=== PATIENT | male | born 1985 | race Caucasian/White ===

== ENCOUNTER 2018-03-28 15:42 | Emergency (ER) | payer BC ==
--- NOTE | 2018-03-28 16:18 | ERPHSYRPT ---
- History of Present Illness Time Seen by Provider: 03/28/18 16:08 Historian: patient Exam Limitations: no limitations Patient Subjective Stated Complaint: Patient stated he started not feeling well around 1100 and he ate lunch then afterwards pain started in RUQ at 10/10. Patient states pain has subsided now. Triage Nursing Assessment: Patient presented in ER ambulating and transferred self into bed. Patient had been at [facility] for RUQ pain and was told to come to ER. Patient stated he started not feeling well around 1100 and he ate lunch then afterwards pain started in RUQ at 10/10. Patient states pain has subsided now. Patient BS present X 4. Last BM 03/28/18. Patient has rebound tenderness to RUQ. Physician History: The patient is a 32-year-old male with his complaining of a sudden onset of right upper quadrant pain about a half an hour after eating a fatty meal at 1 :00 this afternoon. Earlier in the day he was feeling kind of weak and disoriented but that has gone away now. He went to [facility] that was told to come here for possible gallbladder issues. The pain at its most intense is a 10 out of 10 but sometimes it will ease up somewhat. He has some nausea but has not vomited. He denies fever or chills. He's had a negative past medical history. He's had no surgeries. Timing/Duration: today, hour(s) (3), sudden, worse Quality: sharpness Abdominal Pain Onset Location: RUQ Pain Radiation: no radiation Severity of Pain-Max: severe Severity of Pain-Current: severe Modifying Factors: Improves With: eating (worse) Associated Symptoms: nausea Previous symptoms: no prior history Allergies/Adverse Reactions: No Known Drug Allergies Allergy (Verified 03/28/18 16:03) Home Medications: No Reportable Medications [No Reported Medications] 03/28/18 [History] Hx Tetanus, Diphtheria Vaccination/Date Given: Yes Hx Influenza Vaccination/Date Given: No Hx Pneumococcal Vaccination/Date Given: No Immunizations Up to Date: Yes - Review of Systems Constitutional: No Fever, No Chills Eyes: No Symptoms Ears, Nose, & Throat: No Symptoms Respiratory: No Cough, No Dyspnea Cardiac: No Chest Pain, No Edema, No Syncope Abdominal/Gastrointestinal: Abdominal Pain, Nausea, No Vomiting, No Diarrhea Genitourinary Symptoms: No Dysuria Musculoskeletal: No Back Pain, No Neck Pain Skin: No Rash Neurological: No Dizziness, No Focal Weakness, No Sensory Changes Psychological: No Symptoms Endocrine: No Symptoms Hematologic/Lymphatic: No Symptoms Immunological/Allergic: No Symptoms All Other Systems: Reviewed and Negative - Past Medical History Pertinent Past Medical History: No Neurological History: Migraines ENT History: No Pertinent History Cardiac History: No Pertinent History Respiratory History: Bronchitis Endocrine Medical History: No Pertinent History Musculoskeletal History: Fractures GI Medical History: No Pertinent History History: No Pertinent History Psycho-Social History: No Pertinent History Male Reproductive Disorders: No Pertinent History Other Medical History: Skull fx in 2000. Jaw fx in 2000 - Past Surgical History Past Surgical History: No Neuro Surgical History: No Pertinent History Cardiac: No Pertinent History Respiratory: No Pertinent History Gastrointestinal: No Pertinent History Genitourinary: No Pertinent History Musculoskeletal: No Pertinent History Male Surgical History: No Pertinent History - Social History Smoking Status: Never smoker Exposure to second hand smoke: Yes Drug Use: none Patient Lives Alone: No - Nursing Vital Signs Nursing Vital Signs: Initial Vital Signs Temperature 98.9 F 03/28/18 15:43 Pulse Rate 83 03/28/18 15:43 Respiratory Rate 22 03/28/18 15:43 Blood Pressure 104/58 03/28/18 15:43 O2 Sat by Pulse Oximetry 98 03/28/18 15:43 Pain Scale Pain Intensity 5 - Physical Exam General Appearance: mild distress Eye Exam: PERRL/EOMI, eyes nml inspection Ears, Nose, Throat Exam: normal ENT inspection, pharynx normal, moist mucous membranes Neck Exam: normal inspection, non-tender, supple, full range of motion Respiratory Exam: normal breath sounds, lungs clear, No respiratory distress Cardiovascular Exam: regular rate/rhythm, normal heart sounds Gastrointestinal/Abdomen Exam: tenderness (RUQ) Rectal Exam: not done Back Exam: normal inspection, normal range of motion, No CVA tenderness, No vertebral tenderness Extremity Exam: normal inspection, normal range of motion, pelvis stable Neurologic Exam: alert, oriented x 3, cooperative, normal mood/affect, nml cerebellar function, sensation nml, No motor deficits Skin Exam: normal color, warm, dry SpO2 Interpretation: normal SpO2: 98 Oxygen Delivery: Room Air - CT Exams Abdomen/Pelvis CT Interpretation: Tele-radiologist Report (per Dr Johnson), No appendicitis, Other (no renal stone; small HH; mild sigmoid diverticulosis; tiny pelvic free fluid. remaining abd negative) - Radiology Ultrasound Exam Gallbladder Ultrasound: negative (per U/S tech) Ordered Tests: Active Orders 24 hr Category Date Time Status IV Insertion STAT Care 03/28/18 16:22 Active ABDOMEN AND PELVIS W/0 CONTRAS [CT] Stat Exams 03/28/18 18:27 Taken GALLBLADDER [US] Stat Exams 03/28/18 16:50 Taken AMYLASE Stat Lab 03/28/18 16:30 Completed CBC W DIFF Stat Lab 03/28/18 16:22 Completed CMP Stat Lab 03/28/18 16:30 Completed LIPASE Stat Lab 03/28/18 16:30 Completed Lactic Acid Stat Lab 03/28/18 16:35 Completed UA W/RFX UR CULTURE Stat Lab 03/28/18 16:30 Completed Medication Summary Discontinued Medications Generic Name Dose Route Start Last Admin Trade Name Freq PRN Reason Stop Dose Admin Sodium Chloride 1,000 mls @ 999 mls/hr 03/28/18 16:22 03/28/18 16:32 Sodium Chloride 0.9% 1000 Ml IV 03/28/18 17:22 999 mls/hr .Q1H1M STA Administration Sodium Chloride Confirm 03/28/18 16:28 Sodium Chloride 0.9% 1000 Ml Administered 03/28/18 16:29 Dose 1,000 mls @ ud .ROUTE .STK-MED ONE Morphine Sulfate 4 mg 03/28/18 16:22 03/28/18 16:31 Morphine Sulfate 4 Mg Inj IV 03/28/18 16:23 4 mg STAT ONE Administration Morphine Sulfate Confirm 03/28/18 16:28 Morphine Sulfate 4 Mg Inj Administered 03/28/18 16:29 Dose 4 mg .ROUTE .STK-MED ONE Ondansetron HCl 4 mg 03/28/18 16:22 03/28/18 16:30 Zofran 4 Mg/2 Ml Vial IV 03/28/18 16:23 4 mg STAT ONE Administration Ondansetron HCl Confirm 03/28/18 16:28 Zofran 4 Mg/2 Ml Vial Administered 03/28/18 16:29 Dose 4 mg .ROUTE .STK-MED ONE Lab/Rad Data: Laboratory Result Diagrams 03/28/18 16:22 03/28/18 16:30 Laboratory Results 0803/28/18 03/28/18 Range/Units 16:35 16:30 16:30 WBC (4.0-10.5) K/mm3 RBC (4.1-5.6) M/mm3 Hgb (12.5-18.0) gm/dl Hct (42-50) % MCV (78-100) fl MCH (26-32) pg MCHC (32-36) g/dl RDW (11.5-14.0) % Plt Count (150-450) K/mm3 MPV (6-9.5) fl Gran % (36.0-66.0) % Eos # (Auto) (0-0.5) Absolute Lymphs (auto) (1.0-4.6) Absolute Monos (auto) (0.0-1.3) Lymphocytes % (24.0-44.0) % Monocytes % (0.0-12.0) % Eosinophils % (0.00-5.0) % Basophils % (0.0-0.4) % Absolute Granulocytes (1.4-6.9) Basophils # (0-0.4) Sodium 141 (137-145) mmol/L Potassium 4.1 (3.5-5.1) mmol/L Chloride 100 (98-107) mmol/L Carbon Dioxide 30 (22-30) mmol/L Anion Gap 16.1 H (5-15) MEQ/L BUN 12 (9-20) mg/dL Creatinine 0.82 (0.66-1.25) mg/dL Estimated GFR > 60.0 ML/MIN Glucose 94 (74-106) mg/dL Lactic Acid 1.1 (0.4-2.0) Calcium 9.9 (8.4-10.2) mg/dL Total Bilirubin 0.40 (0.2-1.3) mg/dL AST 23 (17-59) U/L ALT 32 (0-50) U/L Alkaline Phosphatase 58 (38-126) U/L Serum Total Protein 7.8 (6.3-8.2) g/dL Albumin 5.0 (3.5-5.0) g/dL Amylase 51 (30-110) U/L Lipase 47 (23-300) U/L Ur Collection Type CCMS Urine Color YELLOW (YELLOW) Urine Appearance CLEAR (CLEAR) Urine pH 7.0 (5-6) Ur Specific [place] 1.010 (1.005-1.025) Urine Protein NEGATIVE (Negative) Urine Ketones NEGATIVE (NEGATIVE) Urine Blood NEGATIVE (0-5) Phil/ul Urine Nitrite NEGATIVE (NEGATIVE) Urine Bilirubin NEGATIVE (NEGATIVE) Urine Urobilinogen NORMAL (0-1) mg/dL Ur Leukocyte Esterase NEGATIVE (NEGATIVE) Urine Culture Reflexed NO (NO) Urine Glucose NEGATIVE (NEGATIVE) mg/dL Specimen Received 03-28-18 1645 03/28/18 Range/Units 16:22 WBC 8.4 (4.0-10.5) K/mm3 RBC 5.36 (4.1-5.6) M/mm3 Hgb 16.7 (12.5-18.0) gm/dl Hct 48.1 (42-50) % MCV 89.7 (78-100) fl MCH 31.2 (26-32) pg MCHC 34.7 (32-36) g/dl RDW 12.4 (11.5-14.0) % Plt Count 224 (150-450) K/mm3 MPV 11.1 H (6-9.5) fl Gran % 65.7 (36.0-66.0) % Eos # (Auto) 0.08 (0-0.5) Absolute Lymphs (auto) 2.08 (1.0-4.6) Absolute Monos (auto) 0.72 (0.0-1.3) Lymphocytes % 24.7 (24.0-44.0) % Monocytes % 8.5 (0.0-12.0) % Eosinophils % 0.9 (0.00-5.0) % Basophils % 0.2 (0.0-0.4) % Absolute Granulocytes 5.53 (1.4-6.9) Basophils # 0.02 (0-0.4) Sodium (137-145) mmol/L Potassium (3.5-5.1) mmol/L Chloride (98-107) mmol/L Carbon Dioxide (22-30) mmol/L Anion Gap (5-15) MEQ/L BUN (9-20) mg/dL Creatinine (0.66-1.25) mg/dL Estimated GFR ML/MIN Glucose (74-106) mg/dL Lactic Acid (0.4-2.0) Calcium (8.4-10.2) mg/dL Total Bilirubin (0.2-1.3) mg/dL AST (17-59) U/L ALT (0-50) U/L Alkaline Phosphatase (38-126) U/L Serum Total Protein (6.3-8.2) g/dL Albumin (3.5-5.0) g/dL Amylase (30-110) U/L Lipase (23-300) U/L Ur Collection Type Urine Color (YELLOW) Urine Appearance (CLEAR) Urine pH (5-6) Ur Specific [place] (1.005-1.025) Urine Protein (Negative) Urine Ketones (NEGATIVE) Urine Blood (0-5) Phil/ul Urine Nitrite (NEGATIVE) Urine Bilirubin (NEGATIVE) Urine Urobilinogen (0-1) mg/dL Ur Leukocyte Esterase (NEGATIVE) Urine Culture Reflexed (NO) Urine Glucose (NEGATIVE) mg/dL Specimen Received - Progress Progress: improved Progress Note: 03/28/18 18:25 After MSO4 4 mg, zofran 4 mg, and fluids by IV, pt is still in pain. Abb/pelvis CT offered and pt agrees. Counseled pt/family regarding: lab results, diagnosis, need for follow-up, rad results - Departure Time of Disposition: 19:27 Departure Disposition: Home Clinical Impression: Abdominal pain Condition: Stable Critical Care Time: No Referrals: DIANA MCFARLAND [Primary Care Provider] - Additional Instructions: You have abdominal pain but the cause is unknown at this time. Your laboratory results including the urinalysis were normal. The ultrasound of her gallbladder and the CT scan of the abdomen and pelvis did not show any acute findings. You were given morphine 4 mg, Zofran 4 mg, and fluids by IV in the ER. Take Tylenol or ibuprofen for any discomfort tonight. Began with a bland diet tonight. If you're still having discomfort tomorrow, either return to the ER or call Dr. Mcfarland for further evaluation.
[2018-03-28] MEDS ORDERED: Sodium Chloride 0.9% 1000 ML 1,000 ML IV STA (16:22)
[2018-03-28] MEDS ORDERED: MORPHINE SULFATE 4 MG INJ IV ONE (16:22)
[2018-03-28] MEDS ORDERED: Zofran 4 MG/2 ML VIAL IV ONE (16:22)
[2018-03-28] MEDS ORDERED: Sodium Chloride 0.9% 1000 ML 1,000 ML ONE (16:28)
[2018-03-28] MEDS ORDERED: MORPHINE SULFATE 4 MG INJ ONE (16:28)
[2018-03-28] MEDS ORDERED: Zofran 4 MG/2 ML VIAL ONE (16:28)
[2018-03-28 16:40] LABS: BASOPHIL % 0.2 % (0.0-0.4); Basophil (Absolute #) 0.02 (0-0.4); Eosinophil % 0.9 % (0.00-5.0); Eosinophil (Absolute #) 0.08 (0-0.5); Granulocyte Absolute (ANC) 5.53 (1.4-6.9); Granulocytes % 65.7 % (36.0-66.0); Hematocrit 48.1 % (42-50); Hemoglobin 16.7 gm/dl (12.5-18.0); Lymphocyte (Absolute #) 2.08 (1.0-4.6); Lymphocytes % 24.7 % (24.0-44.0); Mean Cell Volume 89.7 fl (78-100); Mean Corpuscular Hemoglobin 31.2 pg (26-32); Mean Corpuscular Hgb Concent. 34.7 g/dl (32-36); Mean Platelet Volume 11.1 fl (6-9.5); Monocyte (Absolute #) 0.72 (0.0-1.3); Monocytes % 8.5 % (0.0-12.0); Platelet Count 224 K/mm3 (150-450); Red Blood Count 5.36 M/mm3 (4.1-5.6); Red Cell Distribution Width 12.4 % (11.5-14.0); White Blood Count 8.4 K/mm3 (4.0-10.5)
[2018-03-28 16:46] LABS: Appearance CLEAR (CLEAR); Leukocyte Esterase NEGATIVE (NEGATIVE)
[2018-03-28 16:47] LABS: Bilirubin NEGATIVE (NEGATIVE); Blood NEGATIVE Ery/ul (0-5); Glucose NEGATIVE (NEGATIVE); Ketones NEGATIVE (NEGATIVE); Nitrite NEGATIVE (NEGATIVE); Protein,Urine Dip NEGATIVE (Negative); Urobilinogen NORMAL mg/dL (0-1)
[2018-03-28 16:59] LABS: ALKALINE PHOSPHATASE 58 U/L (38-126); AMYLASE 51 U/L (30-110); ANION GAP 16.1 MEQ/L (5-15); BLOOD UREA NITROGEN 12 mg/dL (9-20); CHLORIDE 100 mmol/L (98-107); Calcium 9.9 mg/dL (8.4-10.2); Carbon Dioxide 30 mmol/L (22-30); Creatinine 1 0.82 mg/dL (0.66-1.25); Glucose 94 mg/dL (74-106); LIPASE 47 U/L (23-300); Potassium 4.1 mmol/L (3.5-5.1); SGOT/AST 23 U/L (17-59); SGPT/ALT 32 U/L (0-50); SODIUM 141 mmol/L (137-145); Total Protein 7.8 g/dL (6.3-8.2)
[2018-03-28 18:14] VITALS: O2SAT 98
--- NOTE | 2018-03-28 19:22 | XRAY ---
Indication: Right upper quadrant pain. Two-dimensional gallbladder sonogram performed. Comparison: None Visualized portions of the gallbladder, liver, pancreas, and right kidney appears sonographically normal. Common bile duct measures 4.2 mm. Right kidney measures 12 cm in length. No ascites. Impression: Negative gallbladder sonogram. Comment: Preliminary report was given.
[2018-03-28 19:39] VITALS: BP 113/66; PULSE 80
--- NOTE | 2018-03-29 08:33 | XRAY ---
Indication: Right abdomen pain. Multiple contiguous axial images obtained through the abdomen and pelvis without contrast using renal stone protocol. Comparison: April 26, 2007. Lung bases demonstrates mild bibasilar dependent atelectasis with stable lingular calcified granuloma. No infiltrate or effusion. Heart is not enlarged. New small hiatal hernia. No renal calculus or evidence for obstructive uropathy in either system. Noncontrasted stomach and bowel loops appear nonobstructed. Normal appendix. Again mild sigmoid diverticulosis without diverticulitis. There is tiny nonspecific pelvic free fluid. No walled off fluid collection or free air. Remaining liver, gallbladder, pancreas, spleen, adrenal glands, kidneys, ureters, bladder, and aorta appear unremarkable for noncontrast exam. Osseous structures intact. No ventral or inguinal hernias. Impression: 1. Negative renal calculus or evidence for obstructive uropathy. 2. Stable sigmoid diverticulosis without diverticulitis. 3. New tiny nonspecific pelvic free fluid and small hiatal hernia. 4. Remaining CT abdomen/pelvis without contrast exam is negative. CT DI 19.84
== END 2018-03-28 19:41 | disposition home or self-care (01) ==
LOC: ED 15:42
DX: R10.11 Right upper quadrant pain (principal); R11.0 Nausea
CPT/HCPCS: 36000; 36415; 74176; 76705; 80053; 81002; 82150; 83605; 83690; 85025; 96360; 96374; 96375; 99284; J2270; J2405

== ENCOUNTER 2022-02-17 17:05 | Emergency (ER) | payer BC ==
[2022-02-17] MEDS ORDERED: TORAdol 30 mg Injection IV ONE (17:31)
[2022-02-17] MEDS ORDERED: Sodium Chloride 0.9% 1000 ML 1,000 ML IV STA (17:32)
[2022-02-17] MEDS ORDERED: Zofran 4 MG/2 ML VIAL IV ONE (17:32)
[2022-02-17] MEDS ORDERED: Sodium Chloride 0.9% 1000 ML 1,000 ML ONE (17:33)
[2022-02-17] MEDS ORDERED: Zofran 4 MG/2 ML VIAL ONE (17:33)
[2022-02-17] MEDS ORDERED: TORAdol 30 mg Injection ONE (17:33)
--- NOTE | 2022-02-17 17:39 | ERPHSYRPT ---
- History of Present Illness Historian: patient Exam Limitations: no limitations Patient Subjective Stated Complaint: Pt c/o of celia upper abdominal pain with more pain on the left since Monday, denies nausea until he arrived at the hospital Triage Nursing Assessment: Pt brought self to the ER, hypertensive, rates pain 9/10 in his abdomen, denies difficulty with bowels, denies vomiting, drinks bourbon daily, last bowel movement today and last intake at lunch today, pulses normal, skin n/w/d, no difficulty with breathing Physician History: 36 yo wm w epigastric pain x 2 days. Pain is 10/10 and sharp-cramping. Nothing makes the pain better or worse. He had similar pain last weekend and has had it in the past wo diagnosis. Pt has nausea wo vomiting/diarrhea/dysuria/hematuria/melena/hematochezia/fever/chest pain/dyspnea. He has 1 bourbon a day. Timing/Duration: other (2 days) Activities at Onset: rest Quality: cramping, sharpness Abdominal Pain Onset Location: epigastric Pain Radiation: no radiation Severity of Pain-Max: severe Severity of Pain-Current: severe Modifying Factors: Improves With: nothing Associated Symptoms: denies symptoms, nausea Previous symptoms: same symptoms as today Allergies/Adverse Reactions: No Known Drug Allergies Allergy (Verified 02/17/22 17:24) Home Medications: No Reportable Medications [No Reported Medications] 03/28/18 [History] Hx Tetanus, Diphtheria Vaccination/Date Given: Yes Hx Influenza Vaccination/Date Given: No Hx Pneumococcal Vaccination/Date Given: No Travel Risk - International Travel Have you traveled outside of the country in past 3 weeks: No - Coronavirus Screening Are you exhibiting any of the following symptoms?: No Close contact with a COVID-19 positive Pt in past 14-21 Days: No - Vaccine Status Have you recieved a Covid-19 vaccination: Yes [employer]: Social Median - Review of Systems Constitutional: No Symptoms Eyes: No Symptoms Ears, Nose, & Throat: No Symptoms Respiratory: No Symptoms Cardiac: No Symptoms Abdominal/Gastrointestinal: No Symptoms, Abdominal Pain, Nausea Genitourinary Symptoms: No Symptoms Musculoskeletal: No Symptoms Skin: No Symptoms Neurological: No Symptoms Psychological: No Symptoms Endocrine: No Symptoms Hematologic/Lymphatic: No Symptoms Immunological/Allergic: No Symptoms - Past Medical History Pertinent Past Medical History: Yes Neurological History: Migraines ENT History: No Pertinent History Cardiac History: No Pertinent History Respiratory History: Bronchitis Endocrine Medical History: No Pertinent History Musculoskeletal History: Fractures GI Medical History: No Pertinent History History: No Pertinent History Psycho-Social History: No Pertinent History Male Reproductive Disorders: No Pertinent History Other Medical History: Skull fx in 2000. Jaw fx in 2000 - Past Surgical History Past Surgical History: No Neuro Surgical History: No Pertinent History Cardiac: No Pertinent History Respiratory: No Pertinent History Gastrointestinal: No Pertinent History Genitourinary: No Pertinent History Musculoskeletal: No Pertinent History Male Surgical History: No Pertinent History - Social History Smoking Status: Never smoker Exposure to second hand smoke: Yes Drug Use: none Patient Lives Alone: No Significant Family History: no pertinent family hx - Nursing Vital Signs Nursing Vital Signs: Initial Vital Signs Temperature 97.3 F 02/17/22 17:15 Pulse Rate 85 02/17/22 17:15 Blood Pressure 159/105 02/17/22 17:15 O2 Sat by Pulse Oximetry 100 02/17/22 17:15 Pain Scale Pain Intensity 6 Hypertensive - Physical Exam General Appearance: no apparent distress (In pain) Eye Exam: PERRL/EOMI, eyes nml inspection Ears, Nose, Throat Exam: normal ENT inspection, TMs normal, pharynx normal, mois t mucous membranes Neck Exam: normal inspection, non-tender, supple, full range of motion, No meningismus, No mass, No Brudzinski, No Kernig's Respiratory Exam: normal breath sounds, lungs clear, airway intact, No chest tenderness, No respiratory distress Cardiovascular Exam: regular rate/rhythm, normal heart sounds, normal peripheral pulses, capillary refill <2 sec, No murmur Gastrointestinal/Abdomen Exam: soft, normal bowel sounds, tenderness (RUQ/LUQ ttp wo guarding or rebound) Back Exam: normal inspection, normal range of motion, No CVA tenderness, No vertebral tenderness Extremity Exam: normal inspection, normal range of motion Neurologic Exam: alert, oriented x 3, cooperative, wrapper sheeter II-XII nml as tested, normal mood/affect, nml cerebellar function, nml station & gait, sensation nml, No motor deficits, No sensory deficit Skin Exam: normal color, warm, dry, No rash Lymphatic Exam: No adenopathy SpO2 Interpretation: normal SpO2: 100 O2 Delivery: Room Air - Course Nursing assessment & vital signs reviewed: Yes - CT Exams Abdomen/Pelvis CT Interpretation: Discussed w/radiologist (Small hiatal hernia/Nothing acute) Ordered Tests: Active Orders 24 hr Category Date Time Status ABDOMEN AND PELVIS W/0 CONTRAS [CT] Stat Exams 02/17/22 18:01 Taken AMYLASE Stat Lab 02/17/22 17:30 Completed Alcohol [ETHYL ALCOHOL] Stat Lab 02/17/22 17:30 Completed CBC W DIFF Stat Lab 02/17/22 17:30 Completed CMP Stat Lab 02/17/22 17:30 Completed LIPASE Stat Lab 02/17/22 17:30 Completed UA W/RFX CULTURE Stat Lab 02/17/22 17:34 Completed Medication Summary Discontinued Medications Generic Name Dose Route Start Last Admin Trade Name Freq PRN Reason Stop Dose Admin Fentanyl Citrate 50 mcg 02/17/22 18:37 02/17/22 18:40 Fentanyl Citrate 100 Mcg/2 Ml* Vial IV 02/17/22 18:38 50 mcg STAT ONE Administration Fentanyl Citrate Confirm 02/17/22 18:39 Fentanyl Citrate 100 Mcg/2 Ml* Vial Administered 02/17/22 18:40 Dose 100 mcg .ROUTE .STK-MED ONE Sodium Chloride 1,000 mls @ 999 mls/hr 02/17/22 17:32 02/17/22 18:35 Sodium Chloride 0.9% 1000 Ml IV 02/17/22 18:32 Infused .Q1H1M STA Infusion Sodium Chloride Confirm 02/17/22 17:33 Sodium Chloride 0.9% 1000 Ml Administered 02/17/22 17:34 Dose 1,000 mls @ ud .ROUTE .STK-MED ONE Ketorolac Tromethamine 15 mg 02/17/22 17:31 02/17/22 17:35 Ketorolac Tromethamine 30 Mg/Ml Inj IV 02/17/22 17:32 15 mg STAT ONE Administration Ketorolac Tromethamine Confirm 02/17/22 17:33 Ketorolac Tromethamine 30 Mg/Ml Inj Administered 02/17/22 17:34 Dose 30 mg .ROUTE .STK-MED ONE Ondansetron HCl 4 mg 02/17/22 17:32 02/17/22 17:35 Ondansetron Hcl 4 Mg/2 Ml Vial IV 02/17/22 17:33 4 mg STAT ONE Administration Ondansetron HCl Confirm 02/17/22 17:33 Ondansetron Hcl 4 Mg/2 Ml Vial Administered 02/17/22 17:34 Dose 4 mg .ROUTE .K-MED ONE Lab/Rad Data: Laboratory Result Diagrams 02/17/22 17:30 02/17/22 17:30 Laboratory Results 02/17/22 02/17/22 02/17/22 Range/Units 17:34 17:30 17:30 WBC (4.0-10.5) x10^3/uL RBC (4.1-5.6) x10^6/uL Hgb (12.5-18.0) g/dL Hct (42-50) % MCV (78-100) fL MCH (26-32) pg MCHC (32-36) g/dL RDW (11.5-14.0) % Plt Count (150-450) x10^3/uL MPV (7.5-11.0) fL Gran % (36.0-66.0) % Immature Gran % (Auto) (0.00-0.4) % Nucleat RBC Rel Count (0.00-0.1) % Eos # (Auto) (0-0.5) x10^3/uL Immature Gran # (Auto) (0.00-0.03) x10^3u/L Absolute Lymphs (auto) (1.0-4.6) x10^3/uL Absolute Monos (auto) (0.0-1.3) x10^3/uL Absolute Nucleated RBC (0.00-0.01) x10^3u/L Lymphocytes % (24.0-44.0) % Monocytes % (0.0-12.0) % Eosinophils % (0.00-5.0) % Basophils % (0.0-0.4) % Absolute Granulocytes (1.4-6.9) x10^3/uL Basophils # (0-0.4) x10^3/uL Sodium 137 (137-145) mmol/L Potassium 4.1 (3.5-5.1) mmol/L Chloride 98 (98-107) mmol/L Carbon Dioxide 28 (22-30) mmol/L Anion Gap 14.9 (5-15) MEQ/L BUN 15 (9-20) mg/dL Creatinine 0.89 (0.66-1.25) mg/dL Estimated GFR > 60.0 ML/MIN Glucose 92 (74-106) mg/dL Calcium 9.5 (8.4-10.2) mg/dL Total Bilirubin 0.60 (0.2-1.3) mg/dL AST 35 (17-59) U/L ALT 34 (0-50) U/L Alkaline Phosphatase 59 (38-126) U/L Serum Total Protein 7.8 (6.3-8.2) g/dL Albumin 4.7 (3.5-5.0) g/dL Amylase 72 (30-110) U/L Lipase 65 (23-300) U/L Urinalys Dipstick Clnc MAIN LAB Urine Color YELLOW (YELLOW) Urine Appearance CLEAR (CLEAR) Urine pH 7.0 (5-6) Ur Specific [place] 1.015 (1.005-1.025) POC Urine Protein Conf NEGATIVE (Negative) Urine Ketones NEGATIVE (NEGATIVE) Urine Nitrite NEGATIVE (NEGATIVE) Urine Bilirubin NEGATIVE (NEGATIVE) Urine Urobilinogen 0.2 (0-1) mg/dL Urine Leukocytes NEGATIVE (NEGATIVE) Urine WBC (Auto) 0-2 (0-5) /HPF Urine RBC (Auto) 0-2 (0-2) /HPF Urine RBC NEGATIVE (0-5) Phil/ul Ur Culture Indicated? NO Urine Glucose NEGATIVE (NEGATIVE) mg/dL Ethyl Alcohol < 10 (0-10) mg/dL 02/17/22 Range/Units 17:30 WBC 7.7 (4.0-10.5) x10^3/uL RBC 4.96 (4.1-5.6) x10^6/uL Hgb 15.5 (12.5-18.0) g/dL Hct 44.8 (42-50) % MCV 90.3 (78-100) fL MCH 31.3 (26-32) pg MCHC 34.6 (32-36) g/dL RDW 11.7 (11.5-14.0) % Plt Count 222 (150-450) x10^3/uL MPV 10.8 (7.5-11.0) fL Gran % 51.2 (36.0-66.0) % Immature Gran % (Auto) 0.3 (0.00-0.4) % Nucleat RBC Rel Count 0.0 (0.00-0.1) % Eos # (Auto) 0.13 (0-0.5) x10^3/uL Immature Gran # (Auto) 0.02 (0.00-0.03) x10^3u/L Absolute Lymphs (auto) 2.85 (1.0-4.6) x10^3/uL Absolute Monos (auto) 0.73 (0.0-1.3) x10^3/uL Absolute Nucleated RBC 0.00 (0.00-0.01) x10^3u/L Lymphocytes % 37.0 (24.0-44.0) % Monocytes % 9.5 (0.0-12.0) % Eosinophils % 1.7 (0.00-5.0) % Basophils % 0.3 (0.0-0.4) % Absolute Granulocytes 3.95 (1.4-6.9) x10^3/uL Basophils # 0.02 (0-0.4) x10^3/uL Sodium (137-145) mmol/L Potassium (3.5-5.1) mmol/L Chloride (98-107) mmol/L Carbon Dioxide (22-30) mmol/L Anion Gap (5-15) MEQ/L BUN (9-20) mg/dL Creatinine (0.66-1.25) mg/dL Estimated GFR ML/MIN Glucose (74-106) mg/dL Calcium (8.4-10.2) mg/dL Total Bilirubin (0.2-1.3) mg/dL AST (17-59) U/L ALT (0-50) U/L Alkaline Phosphatase (38-126) U/L Serum Total Protein (6.3-8.2) g/dL Albumin (3.5-5.0) g/dL Amylase (30-110) U/L Lipase (23-300) U/L Urinalys Dipstick Clnc Urine Color (YELLOW) Urine Appearance (CLEAR) Urine pH (5-6) Ur Specific [place] (1.005-1.025) POC Urine Protein Conf (Negative) Urine Ketones (NEGATIVE) Urine Nitrite (NEGATIVE) Urine Bilirubin (NEGATIVE) Urine Urobilinogen (0-1) mg/dL Urine Leukocytes (NEGATIVE) Urine WBC (Auto) (0-5) /HPF Urine RBC (Auto) (0-2) /HPF Urine RBC (0-5) Phil/ul Ur Culture Indicated? Urine Glucose (NEGATIVE) mg/dL Ethyl Alcohol (0-10) mg/dL - Progress Progress Note: 02/17/22 18:38 15mg IV Toradol w minimal improvement 1L NS bolus 50mcg IV Fentanyl Counseled pt/family regarding: lab results, diagnosis, need for follow-up, rad results - Departure Departure Disposition: Home Clinical Impression: Abdominal pain Condition: Stable Critical Care Time: No Referrals: DOCTOR,NO FAMILY [Primary Care Provider] - Follow up/PCP as directed Instructions: Severe Abdominal Pain, Adult (DC) Additional Instructions: Follow up with your family MD Start Protonix prescribed by [facility] today(ok to substitute Nexium,Prevacid, or Prilosec OTC if cheaper) Return to ER for increasing pain or temperature greater than 100.5
[2022-02-17 17:49] LABS: RBC 0-2 /HPF (0-2); WBC 0-2 /HPF (0-5)
[2022-02-17 17:52] LABS: Absolute Neutrophil Ct (ANC) 3.95 x10^3/uL (1.4-6.9); Basophil (Absolute #) 0.02 x10^3/uL (0-0.4); Eosinophil % 1.7 % (0.00-5.0); Eosinophil (Absolute #) 0.13 x10^3/uL (0-0.5); Hematocrit 44.8 % (42-50); Hemoglobin 15.5 g/dL (12.5-18.0); Lymphocyte (Absolute #) 2.85 x10^3/uL (1.0-4.6); Mean Cell Volume 90.3 fL (78-100); Mean Corpuscular Hemoglobin 31.3 pg (26-32); Mean Corpuscular Hgb Concent. 34.6 g/dL (32-36); Mean Platelet Volume 10.8 fL (7.5-11.0); Monocyte (Absolute #) 0.73 x10^3/uL (0.0-1.3); Monocytes % 9.5 % (0.0-12.0); Neutrophil % 51.2 % (36.0-66.0); Platelet Count 222 x10^3/uL (150-450); Red Blood Count 4.96 x10^6/uL (4.1-5.6); Red Cell Distribution Width 11.7 % (11.5-14.0); White Blood Count 7.7 x10^3/uL (4.0-10.5)
[2022-02-17 17:53] LABS: Appearance CLEAR (CLEAR); Bilirubin NEGATIVE (NEGATIVE); Glucose NEGATIVE (NEGATIVE); Ketones NEGATIVE (NEGATIVE); Nitrite NEGATIVE (NEGATIVE); Protein,Urine Dip NEGATIVE (Negative); RBC NEGATIVE Ery/ul (0-5); Specific Gravity 1.015 (1.005-1.025); Urine Cultured Indicated? NO; Urobilinogen 0.2 mg/dL (0-1)
[2022-02-17 17:55] LABS: Dipstick done @ ? MAIN LAB
[2022-02-17 17:58] LABS: ALBUMIN 4.7 g/dL (3.5-5.0); ALKALINE PHOSPHATASE 59 U/L (38-126); AMYLASE 72 U/L (30-110); ANION GAP 14.9 MEQ/L (5-15); BLOOD UREA NITROGEN 15 mg/dL (9-20); CHLORIDE 98 mmol/L (98-107); Calcium 9.5 mg/dL (8.4-10.2); Carbon Dioxide 28 mmol/L (22-30); Creatinine 1 0.89 mg/dL (0.66-1.25); EST GLOMERULAR FILTRATION RATE > 60.0 ML/MIN; Glucose 92 mg/dL (74-106); LIPASE 65 U/L (23-300); Potassium 4.1 mmol/L (3.5-5.1); SGOT/AST 35 U/L (17-59); SGPT/ALT 34 U/L (0-50); SODIUM 137 mmol/L (137-145); Total Protein 7.8 g/dL (6.3-8.2)
[2022-02-17 18:20] VITALS: BP 140/89
[2022-02-17] MEDS ORDERED: SUBLIMAZE 100 MCG/2 ML IV ONE (18:37)
[2022-02-17] MEDS ORDERED: SUBLIMAZE 100 MCG/2 ML ONE (18:39)
[2022-02-17 18:46] VITALS: PULSE 75
[2022-02-17 18:56] VITALS: O2SAT 100
--- NOTE | 2022-02-18 08:58 | XRAY ---
Indication: Abdomen pain and vomiting 4 days. Multiple contiguous axial images obtained through the abdomen and pelvis without contrast. Comparison: March 28, 2018 Lung bases again demonstrate small lingula calcified granuloma. No infiltrate or effusion. Heart not enlarged. Again small hiatal hernia. Stomach now demonstrates a few tiny intraluminal radiopacities presumed ingested medication/bismuth. Noncontrasted bowel loops appear nonobstructed again with normal appendix and minimal sigmoid diverticulosis. Gallbladder contracted without gallstones. No free fluid/air. Remaining liver, gallbladder, pancreas, spleen, adrenal glands, kidneys, ureters, bladder, and aorta are unremarkable for noncontrast exam. Osseous structures intact. No ventral or inguinal hernias. Impression: 1. Again small hiatal hernia and sigmoid diverticulosis. 2. Remaining CT abdomen/pelvis without contrast exam is negative.
== END 2022-02-17 18:52 | disposition home or self-care (01) ==
LOC: ED 17:05
DX: R10.13 Epigastric pain (principal); R11.0 Nausea
CPT/HCPCS: 36000; 36415; 74176; 80053; 80307; 81015; 82150; 83690; 85025; 96374; 96375; 99284; J1885; J2405; J3010; G0480